=== PATIENT | male | born 1945 | race Caucasian/White ===

== ENCOUNTER 2020-09-20 14:23 | Outpatient (CLI) | payer MEDICARE | END 2020-09-20 14:24 | disposition home or self-care (01) | LOC: DTY/OP 14:23 | PROVIDERS: ATTEND Internal Medicine Gastroenterology | DX: K90.0 Celiac disease (principal); R63.4 Abnormal weight loss; E11.9 Type 2 diabetes mellitus without complications | CPT/HCPCS: 97802 ==

== ENCOUNTER 2020-09-28 07:54 | Outpatient (CLI) | payer MEDICARE | END 2020-09-28 07:55 | disposition home or self-care (01) | LOC: BICMAMMO 07:54 | PROVIDERS: ATTEND Internal Medicine Gastroenterology | DX: Z13.820 Encounter for screening for osteoporosis (principal); K90.0 Celiac disease; R63.4 Abnormal weight loss; M85.852 Other specified disorders of bone density and structure, left thigh | CPT/HCPCS: 77080 ==